=== PATIENT | male | born 1970 | race Hispanic/Latino ===

== ENCOUNTER 2016-08-21 17:10 | Emergency (ER) | payer OTHER ==
[2016-08-21 17:17] VITALS: PULSE 73; RESP 16; TEMP 98.8; O2SAT 99
[2016-08-21] MEDS ORDERED: Naproxen 500 MG TAB PO STA (17:41)
--- NOTE | 2016-08-21 17:56 | ED PDOC ---
Upper Extremity Pain/Injury Time Seen by Provider: 08/21/16 17:10 Chief Complaint (Nursing): Upper Extremity Problem/Injury Chief Complaint (Provider): Upper Extremity Problem/Injury History Per: Patient History/Exam Limitations: no limitations Onset/Duration Of Symptoms: Mins (prior to arrival) Current Symptoms Are (Timing): Still Present Additional Complaint(s): 46 y/o male presents to the emergency department via BLS with a complaint of a left shoulder pain status post tripped and hit himself against a sign pole prior to arrival. Reports he heard a pop. Patient has limited ROM of the left shoulder due to pain. No obvious deformity noted. Denies taking medications for the relief of symptoms or any further medical complaints. Past Medical History Reviewed: Historical Data, Nursing Documentation, Vital Signs Vital Signs: Last Vital Signs Temp 98.8 F 08/21/16 17:12 Pulse 73 08/21/16 17:12 Resp 16 08/21/16 17:12 BP 155/99 H 08/21/16 17:12 Pulse Ox 99 08/21/16 17:12 - Medical History PMH: No Chronic Diseases - Family History Family History: States: Unknown Family Hx - Home Medications Home Medications: Ambulatory Orders Medication Instructions Recorded Naproxen [Naprosyn Tab] 1 tab PO Q8 PRN #21 tab 08/21/16 - Allergies Allergies/Adverse Reactions: Allergies Allergy/AdvReac Type Severity Reaction Status Date / Time No Known Allergies Allergy Verified 08/21/16 17:12 Review of Systems ROS Statement: Except As Marked, All Systems Reviewed And Found Negative Musculoskeletal: Positive for: Shoulder Pain (Left) Physical Exam - Reviewed Nursing Documentation Reviewed: Yes Vital Signs Reviewed: Yes - Physical Exam Appears: Positive for: Non-toxic, No Acute Distress Head Exam: Positive for: ATRAUMATIC, NORMAL INSPECTION, NORMOCEPHALIC Skin: Positive for: Normal Color, Warm, Dry Neck: Positive for: Normal, Supple Extremity: Positive for: Tenderness (Tenderness to the left proximal humerus. ) . Negative for: Normal ROM, Deformity, Other (Non-tender to the clavicle) Neurologic/Psych: Positive for: Alert, Oriented - ECG O2 Sat by Pulse Oximetry: 99 (RA) Pulse Ox Interpretation: Normal - Progress ED Course And Treament: XRY OF LEFT SHOULDER: NEG FOR FX PLACED IN SHOULDER SLING NAPROXEN 500MG X 1 DOSE Medical Decision Making Medical Decision Making: Time: 17:10 Initial Impression: Left shoulder pain Initial Plan: --Shoulder Left (RAD) --Naproxen 500 mg PO --Revaluation Scribe Attestation: Documented by Tamara Gifford, acting as a scribe for Merry Caceres PA-C. Provider Scribe Attestation: All medical record entries made by the Scribe were at my direction and personally dictated by me. I have reviewed the chart and agree that the record accurately reflects my personal performance of the history, physical exam, medical decision making, and the department course for this patient. I have also personally directed, reviewed, and agree with the discharge instructions and disposition. Disposition - Clinical Impression Clinical Impression: Shoulder injury - Patient ED Disposition Is Patient to be Admitted: No - Disposition Referrals: Johnny Cates MD [Staff Provider] - Disposition: Routine/Home Disposition Time: 18:10 Condition: FAIR Prescriptions: Naproxen [Naprosyn Tab] 1 tab PO Q8 PRN #21 tab PRN Reason: Pain, Moderate (4-7) Instructions: Shoulder Sprain (ED) Forms: [facility] ED School/Work Excuse
[2016-08-21] MEDS ORDERED: Naproxen 500 MG TAB PO ONE (17:57)
[2016-08-21 18:35] VITALS: BP 139/83
--- NOTE | 2016-08-22 11:21 | RAD ---
PROCEDURE: Radiographs of the Left Shoulder HISTORY: shoulder pain COMPARISON: None available. FINDINGS: BONES: No acute displaced fracture. The distal clavicle and underlying ribs appear intact. JOINTS: No acute dislocation. SOFT TISSUES: Soft tissues appear unremarkable. No evidence of radiopaque foreign body. IMPRESSION: No acute displaced fracture or dislocation evident. If symptoms persist or if there is continued clinical concern, x-ray follow-up in 7-10 days should be considered.
== END 2016-08-21 18:35 | disposition home or self-care (01) ==
LOC: H.ER 17:10
DX: S49.92XA Unspecified injury of left shoulder and upper arm, initial encounter (principal); W22.8XXA Striking against or struck by other objects, initial encounter; Y99.0 Civilian activity done for income or pay